=== PATIENT | male | born 1945 | race Caucasian/White ===

== ENCOUNTER 2023-08-15 02:06 | Inpatient (IN) | payer OTHER ==
[~2023-08-15] VITALS: Ht 177.8 cm; Wt 93.8 kg
[2023-08-15] VITALS (9 sets, daily range): BP systolic 105–146; BP diastolic 50–71
[~2023-08-15 02:06] MED LIST: ALLO300 PO; Aspirin EC81 MG; Atenolol50 MG PO; B-121000 MC2 PO; DOXA2 PO; Ferrous Glucon324 MG PO; GABA800 PO; GLIP10 PO; LEVSOD50 PO; METF500 PO; Omeprazole20 M1; Oxycodone-Apap1 EAC3 PO; REFRESH OPTIVE10 M1 UD; SIMV5 PO; Zestril40 MG
[2023-08-15] MEDS ORDERED: Ipratropium/Albuterol SulF 2.5-0.5MG/3 ML Amp INH ONE (02:15)
[2023-08-15 02:22] LABS: BASOPHILS ABSOLUTE AUTO 0.03 K/mm3 (0.00-0.23); BASOPHILS PERCENT AUTO 0 % (0-2); EOSINOPHILS ABSOLUTE AUTO 0.06 K/mm3 (0.00-0.68); EOSINOPHILS PERCENT AUTO 1 % (0-6); Hematocrit 24.2 % (37.0-53.0); Hemoglobin 7.9 g/dL (13.5-17.5); IMMATURE GRAN ABSOLUTE AUTO 0.12 K/mm3 (0.00-0.10); IMMATURE GRAN PERCENT AUTO 1 % (0-1); LYMPHOCYTES ABSOLUTE AUTO 3.69 K/mm3 (0.84-5.20); LYMPHOCYTES PERCENT AUTO 37 % (21-46); MONOCYTES ABSOLUTE AUTO 0.36 K/mm3 (0.16-1.47); MONOCYTES PERCENT AUTO 4 % (4-13); Mean Corpuscular HGB 32.9 pg (26.0-34.0); Mean Corpuscular HGB Conc 32.6 g/dL (31.5-36.5); Mean Corpuscular Volume 101 fL (80-100); Mean Platelet Volume 11.3 fL (9.1-12.4); NEUTROPHILS ABSOLUTE AUTO 5.61 K/mm3 (1.96-9.15); NEUTROPHILS PERCENT AUTO 57 % (41-73); NRBC ABSOLUTE 0.02 K/mm3 (0.00-0.02); NRBC Auto 0.2 /100 WBC (0.0-0.2); Platelet Count 219 K/mm3 (150-400); RDW Coefficient Variation 22.4 % (11.7-14.2); RDW Standard Deviation 73.6 fL (35.1-46.3); White Blood Cell Count 9.87 K/mm3 (4.00-11.30)
[2023-08-15] MEDS ORDERED: ACET500 PO (02:25)
[2023-08-15] MEDS ORDERED: ATOR10 PO (02:25)
[2023-08-15] MEDS ORDERED: BISA10S PR (02:26)
[2023-08-15] MEDS ORDERED: CLOP75 PO (02:27)
[2023-08-15] MEDS ORDERED: FERSU300 PO (02:27)
[2023-08-15] MEDS ORDERED: FURO40 PO (02:28)
[2023-08-15] MEDS ORDERED: BASAGLAR K100 UNIT/4 SC (02:29)
[2023-08-15] MEDS ORDERED: LOSA25 PO (02:30)
[2023-08-15] MEDS ORDERED: HUMALOG KW100 UNIT/1 SC (02:30)
[2023-08-15] MEDS ORDERED: MELA3 PO (02:31)
[2023-08-15] MEDS ORDERED: MAGNESIUM OXID500 MG PO (02:31)
[2023-08-15] MEDS ORDERED: METO25 PO (02:32)
[2023-08-15] MEDS ORDERED: MOME220I (02:32)
[2023-08-15] MEDS ORDERED: SENN187 PO (02:33)
[2023-08-15] MEDS ORDERED: MORP20L PO (02:33)
[2023-08-15] MEDS ORDERED: PANT20 PO (02:34)
[2023-08-15] MEDS ORDERED: TRAZ50 PO (02:34)
[2023-08-15 02:41] LABS: Albumin, Blood 2.8 g/dL (3.4-5.0); Albumin/Globulin Ratio 0.9 (0.8-1.8); Bilirubin, Total 0.8 mg/dL (0.1-1.0); Calcium, Blood 8.8 mg/dL (8.5-10.1); Globulin, Blood 3.1 g/dL (2.2-4.0); Potassium, Blood 4.6 mmol/L (3.5-5.5); Total Protein, Blood 5.9 g/dL (6.4-8.2)
[2023-08-15] MEDS ORDERED: Furosemide 10 MG/ML 4ML Vial IV ONE (03:50)
[2023-08-15] MEDS ORDERED: Ondansetron HCl 2 MG / ML 2ML Vial IV PRN (04:40)
[2023-08-15] MEDS ORDERED: NS 250 ML IV PRN ×2 (05:40→14:20)
[2023-08-15] MEDS ORDERED: Azithromycin 500 MG in NS 250 ML IV SCH (06:00)
--- NOTE | 2023-08-15 06:37 | NUR ---
ARRIVAL TO PCU NOTE: RECEIVED REPORT FROM STUDIO CAMERA OPERATOR JEAN PIERRE SMALL, PT SHORTLY ARRIVED TO PCU 17 AT 0457 THIS AM. SLIDE FROM [facility] TO PCU BED VIA SLIDE SHEET. A/Ox4 AND COOPERATIVE WITH CARE, BUT IS POOR HISTORIAN. CARDIAC, ARRIVED IN SR-ST 90-100'S WITH NO REPORTS OF CP, PRESSURE, OR DIZZINESS. SBP STABLE RANGING 140'S. RESPIRATORY, MAINTAINS SPO2 >95% ON 1-2L NC. DENIES SOB WHEN AT REST, BUT DOES NOT USE OXYGEN AT HOME. GI/, ABLE TO USE URINAL AT BEDSIDE WITH STAFF ASSISTANCE. DENIES BD TENDERNESS, N/V/D AT THIS TIME. BLE AND LEFT ARM NOTED TO HAVE SOME EDEMA. REPORTS NEUROPATHY IN BLE. SCATTERED BRUISING NOTED T/O LEFT BUTTOCKS, BACK, LEFT ARM, AND LEFT CHEST WALL. LUMP NOTED WITH HEALING INCISION LINES NOTED. SEE PICTURES IN CHART. DR. COLON TO BEDSIDE TO EVALUTE PT. 1xPIV IN LINDA. WILL CONTINUE TO PROCESS MD ORDERS. NYLA FITZPATRICK OF THIS NOTE.
[2023-08-15] MEDS ORDERED: CefTRIAXone Sodium 1,000 MG in NS 100 ML IV SCH (07:00)
[2023-08-15] MEDS ORDERED: Enoxaparin 40 MG/0.4 ML SYR SC SCH (09:00)
[2023-08-15] MEDS ORDERED: Furosemide 10 MG/ML 4ML Vial IV SCH (09:00)
[2023-08-15 10:25] LABS: BASOPHILS ABSOLUTE AUTO 0.02 K/mm3 (0.00-0.23); BASOPHILS PERCENT AUTO 0 % (0-2); EOSINOPHILS ABSOLUTE AUTO 0.04 K/mm3 (0.00-0.68); EOSINOPHILS PERCENT AUTO 1 % (0-6); Hematocrit 21.5 % (37.0-53.0); IMMATURE GRAN ABSOLUTE AUTO 0.05 K/mm3 (0.00-0.10); IMMATURE GRAN PERCENT AUTO 1 % (0-1); LYMPHOCYTES ABSOLUTE AUTO 2.47 K/mm3 (0.84-5.20); LYMPHOCYTES PERCENT AUTO 34 % (21-46); MONOCYTES ABSOLUTE AUTO 0.33 K/mm3 (0.16-1.47); MONOCYTES PERCENT AUTO 5 % (4-13); Mean Corpuscular HGB 33.2 pg (26.0-34.0); Mean Corpuscular HGB Conc 32.6 g/dL (31.5-36.5); Mean Corpuscular Volume 102 fL (80-100); Mean Platelet Volume 11.3 fL (9.1-12.4); NEUTROPHILS ABSOLUTE AUTO 4.38 K/mm3 (1.96-9.15); NEUTROPHILS PERCENT AUTO 60 % (41-73); NRBC ABSOLUTE 0.03 K/mm3 (0.00-0.02); NRBC Auto 0.4 /100 WBC (0.0-0.2); Platelet Count 191 K/mm3 (150-400); RDW Coefficient Variation 22.4 % (11.7-14.2); RDW Standard Deviation 75.4 fL (35.1-46.3); Red Blood Cell Count 2.11 M/mm3 (4.30-5.90); White Blood Cell Count 7.29 K/mm3 (4.00-11.30)
[2023-08-15 10:56] LABS: Albumin, Blood 2.5 g/dL (3.4-5.0); Albumin/Globulin Ratio 0.8 (0.8-1.8); Bilirubin, Total 0.7 mg/dL (0.1-1.0); Bun/Creatinine Ratio 31.4 (12.0-20.0); Calcium, Blood 8.4 mg/dL (8.5-10.1); Creatinine, Blood 0.96 mg/dL (0.60-1.20); Globulin, Blood 3.1 g/dL (2.2-4.0); Potassium, Blood 4.2 mmol/L (3.5-5.5); Total Protein, Blood 5.6 g/dL (6.4-8.2)
[2023-08-15] MEDS ORDERED: ALBU90OI INH (12:03)
[2023-08-15] MEDS ORDERED: ALLO100 PO (12:04)
[2023-08-15] MEDS ORDERED: ASPI81CH PO (12:05)
[2023-08-15] MEDS ORDERED: COMBIVENT RESPIM4 G1 INH (12:10)
[2023-08-15] MEDS ORDERED: EUTHYROX50 MCG PO (12:11)
[2023-08-15] MEDS ORDERED: KAPSPARGO SPRIN25 MG PO (12:21)
[2023-08-15] MEDS ORDERED: MULVITA PO (12:22)
[2023-08-15] MEDS ORDERED: DULERA 200 MCG-13 GM INH (12:22)
[2023-08-15] MEDS ORDERED: NITR.4SL SL (12:23)
[2023-08-15] MEDS ORDERED: PREG75 PO (12:25)
[2023-08-15] MEDS ORDERED: SIME80CH PO (12:27)
[2023-08-15] MEDS ORDERED: Sennosides 8.6 MG Tab PO PRN (13:10)
[2023-08-15] MEDS ORDERED: Nitroglycerin 0.4 MG SUBL SL PRN (13:10)
[2023-08-15] MEDS ORDERED: OxyCODONE HCL 5 MG TAB PO PRN (13:10)
[2023-08-15] MEDS ORDERED: TraZODone HCl 50 MG Tab PO PRN (13:15)
[2023-08-15] MEDS ORDERED: Albuterol HFA200 ACT/6.7 GM INH INH PRN (13:25)
[2023-08-15] MEDS ORDERED: Acetaminophen 325 MG TABLET PO PRN (13:25)
[2023-08-15] MEDS ORDERED: Mometasone/Formoterol MDI 100/5 mcg 13 GM INH SCH (13:25)
[2023-08-15] MEDS ORDERED: Clopidogrel Bisulfate 75 MG Tab PO SCH (14:00)
[2023-08-15] MEDS ORDERED: Metoprolol Succinate 25 MG TABCR PO SCH (14:00)
[2023-08-15] MEDS ORDERED: Aspirin 81 MG Chew PO SCH (14:00)
[2023-08-15] MEDS ORDERED: Insulin Human Lispro 100 Units/ML 3ML Syringe SC SCH (16:30)
[2023-08-15] MEDS ORDERED: Pantoprazole Sodium 40 MG Tab PO SCH (16:30)
--- NOTE | 2023-08-15 16:51 | NUR ---
SHIFT SUMMARY PT REMAINS ALERT AND ORIENTED. BP STABLE. HR REMAINS NSR TO SINUS TACH. PT COMPLAINS OF PAIN TO NECK AND BACK THIS EVENING AND MEDICATED PER EMAR. PT RECEIVED 1U PRBC THIS EVENING WITHOUT COMPLICATIONS. CONDOM CATH IN PLACE FOR INCONTINENCE. NO BM THIS SHIFT. PT UP AND MOVING WITH 1 ASSIST AND FWW. PT UP TO RECLINER THIS EVENING. WILL CONTINUE TO MONITOR AND REPORT TO ONCOMING RN
[2023-08-15 20:07] LABS: Hematocrit 24.3 % (37.0-53.0); Hemoglobin 8.1 g/dL (13.5-17.5)
[2023-08-15 20:45] LABS: Prostate Specific Antigen 0.898 ng/mL (0.000-4.000)
[2023-08-15] MEDS ORDERED: Pregabalin 75 MG Cap PO SCH (21:00)
[2023-08-15] MEDS ORDERED: Melatonin 3 MG Tab PO SCH (21:00)
[2023-08-15] MEDS ORDERED: Insulin Glargine-Yfgn 100 Unit/mL 3 ML SYR SC SCH (21:00)
[2023-08-15] MEDS ORDERED: Magnesium Oxide 400 MG Tab PO SCH (21:00)
[2023-08-15] MEDS ORDERED: Atorvastatin 40 MG Tab PO SCH (21:00)
[2023-08-15] MEDS ORDERED: Lactobacil 2-S.Thermo-Bifido 1 1 Cap PO SCH (21:00)
[2023-08-16] VITALS (11 sets, daily range): BP systolic 104–127; BP diastolic 46–81
[2023-08-16 04:28] LABS: BASOPHILS ABSOLUTE AUTO 0.03 K/mm3 (0.00-0.23); BASOPHILS PERCENT AUTO 0 % (0-2); EOSINOPHILS ABSOLUTE AUTO 0.11 K/mm3 (0.00-0.68); EOSINOPHILS PERCENT AUTO 2 % (0-6); Hematocrit 23.1 % (37.0-53.0); Hemoglobin 7.6 g/dL (13.5-17.5); IMMATURE GRAN ABSOLUTE AUTO 0.03 K/mm3 (0.00-0.10); IMMATURE GRAN PERCENT AUTO 0 % (0-1); LYMPHOCYTES ABSOLUTE AUTO 3.11 K/mm3 (0.84-5.20); LYMPHOCYTES PERCENT AUTO 45 % (21-46); MONOCYTES ABSOLUTE AUTO 0.24 K/mm3 (0.16-1.47); MONOCYTES PERCENT AUTO 4 % (4-13); Mean Corpuscular HGB 31.9 pg (26.0-34.0); Mean Corpuscular HGB Conc 32.9 g/dL (31.5-36.5); Mean Platelet Volume 11.2 fL (9.1-12.4); NEUTROPHILS ABSOLUTE AUTO 3.39 K/mm3 (1.96-9.15); NEUTROPHILS PERCENT AUTO 49 % (41-73); Platelet Count 181 K/mm3 (150-400); RDW Coefficient Variation 23.2 % (11.7-14.2); RDW Standard Deviation 72.3 fL (35.1-46.3); Red Blood Cell Count 2.38 M/mm3 (4.30-5.90); White Blood Cell Count 6.91 K/mm3 (4.00-11.30)
[2023-08-16 04:38] LABS: Mean Corpuscular Volume 97 fL (80-100)
--- NOTE | 2023-08-16 04:53 | NUR ---
SHIFT SUMMARY A/Ox3-4 AND COOPERATIVE WITH CARE. CAN BE FORGETFUL AT TIMES, BUT IS ABLE TO MAKE HIS NEEDS KNOWN. NO ACUTE EVENTS OVERNIGHT. CARDIAC, REMAINS SR-ST 80-100 S WITH NO REPORTS OF CP, PRESSURE, OR DIZZINESS. SBP HAS BEEN STABLE RANGING 110-140'S. RESPIRATORY, MAINTAINS SPO2 >95% ON RA. ENDORSES SOME INCREASE IN WORK OF BREATHING WITH EXERTION. GI/, INTERMITTENT INCONTINENCE OF URINE. CONDOM CATH PLACED FOR MORE ACCURATE I/Os. CATH PATENT AND DRAINING YELLOW URINE TO GRAVITY. ABLE TO AMBULATE TO BSC OR RECLINER WITH 1-2 STAFF ASSISTANCE. ENDORSES GENERAL WEAKNESS. PAIN HAS BEEN WELL MANAGED WITH PRN PAIN MEDICATIONS. MEPILEX ON COCCYX CHANGED THIS SHIFT. NO NEW ORDERS AT THIS TIME, WILL REPORT TO ONCOMING RN. NYLA FITZPATRICK OF THIS NOTE.
[2023-08-16 04:54] LABS: Bun/Creatinine Ratio 31.8 (12.0-20.0); Calcium, Blood 8.8 mg/dL (8.5-10.1); Creatinine, Blood 0.97 mg/dL (0.60-1.20); Potassium, Blood 4.1 mmol/L (3.5-5.5)
[2023-08-16] MEDS ORDERED: Levothyroxine Sodium 0.05 MG Tab PO SCH (06:00)
[2023-08-16] MEDS ORDERED: Allopurinol 100 MG Tab PO SCH (09:00)
[2023-08-16] MEDS ORDERED: Spironolactone 12.5 MG TAB PO SCH (09:00)
[2023-08-16] MEDS ORDERED: Pantoprazole Sodium 40 MG Tab PO SCH (09:00)
[2023-08-16] MEDS ORDERED: Losartan Potassium 25 MG Tab PO SCH ×2 (09:00)
[2023-08-16] MEDS ORDERED: Empagliflozin 10 MG TAB PO SCH (09:00)
[2023-08-16] MEDS ORDERED: Multivitamins 1 Tab PO SCH (09:00)
[2023-08-16 12:20] LABS: Hematocrit 24.1 % (37.0-53.0); Hemoglobin 7.9 g/dL (13.5-17.5)
--- NOTE | 2023-08-16 15:21 | NUR ---
SHIFT SUMMARY No acute changes t/o shift. vss. Pt up with 1 person assist to bathroom. Pt reports episode of SOB with bilateral upper extremity twich/jerking; md aware. Report given to RN assuming care of patient.
--- NOTE | 2023-08-16 18:21 | NUR ---
SHIFT SUMMARY PT TRANSFERED FROM PCU THIS AFTERNOON. ORIENTED TO ROOM. CALL LIGHT IN REACH. PT AMBULATED TO BATHROOM, SMALL DARK STOOL SEEN IN TOILET. BLOOD ORDER RECIEVED & STARTED FOR 1 UNIT OF PRBC. PT TOLERATING WELL SO FAR. SITTING ON SIDE OF BED, EATING DINNER. DENIES OTHER NEEDS AT THIS TIME. MEDICATED ONCE FOR PAIN SINCE ARRIVAL TO UNIT.
[2023-08-17] MEDS ORDERED: ARTIFICIAL TEAR15 M2 BOTHEYES (00:19)
[2023-08-17] MEDS ORDERED: GLYCERIN1 EAC3 PR (00:20)
[2023-08-17] MEDS ORDERED: ATEN25 PO (00:21)
[2023-08-17] MEDS ORDERED: B-121000 MC7 PO (00:22)
[2023-08-17] MEDS ORDERED: GUAI600T33 PO (00:24)
[2023-08-17] MEDS ORDERED: METF500 PO (00:36)
[2023-08-17 03:12] VITALS: BP 122/49
--- NOTE | 2023-08-17 05:17 | NUR ---
SHIFT SUMMARY PT RECEIVED 1 UNIT OF RBC'S THIS SHIFT. NO OTHER ACUTE CHANGES. CALL LIGHT WITHIN REACH AND PT ABLE TO MAKE NEEDS KNOWN.
[2023-08-17 05:37] LABS: BASOPHILS ABSOLUTE AUTO 0.03 K/mm3 (0.00-0.23); BASOPHILS PERCENT AUTO 1 % (0-2); EOSINOPHILS ABSOLUTE AUTO 0.11 K/mm3 (0.00-0.68); EOSINOPHILS PERCENT AUTO 2 % (0-6); Hematocrit 24.6 % (37.0-53.0); IMMATURE GRAN ABSOLUTE AUTO 0.05 K/mm3 (0.00-0.10); IMMATURE GRAN PERCENT AUTO 1 % (0-1); LYMPHOCYTES ABSOLUTE AUTO 2.16 K/mm3 (0.84-5.20); LYMPHOCYTES PERCENT AUTO 37 % (21-46); MONOCYTES ABSOLUTE AUTO 0.22 K/mm3 (0.16-1.47); MONOCYTES PERCENT AUTO 4 % (4-13); Mean Corpuscular HGB 31.9 pg (26.0-34.0); Mean Corpuscular HGB Conc 32.5 g/dL (31.5-36.5); Mean Corpuscular Volume 98 fL (80-100); Mean Platelet Volume 11.2 fL (9.1-12.4); NEUTROPHILS ABSOLUTE AUTO 3.25 K/mm3 (1.96-9.15); NEUTROPHILS PERCENT AUTO 56 % (41-73); Platelet Count 175 K/mm3 (150-400); RDW Standard Deviation 70.7 fL (35.1-46.3); Red Blood Cell Count 2.51 M/mm3 (4.30-5.90); White Blood Cell Count 5.82 K/mm3 (4.00-11.30)
[2023-08-17 06:05] LABS: Calcium, Blood 8.6 mg/dL (8.5-10.1); Potassium, Blood 4.1 mmol/L (3.5-5.5)
[2023-08-17 07:52] VITALS: BP 140/70
[2023-08-17] MEDS ORDERED: Ferrous Sulfate 325 MG Tab PO SCH (09:00)
[2023-08-17] MEDS ORDERED: CYCL0.05OP BOTHEYES (10:38)
[2023-08-17 15:53] VITALS: BP 140/74
[2023-08-17] MEDS ORDERED: Benzonatate 100 MG Cap PO PRN (16:05)
--- NOTE | 2023-08-17 17:29 | NUR ---
SHIFT SUMMARY: PATIENT REPORTS PAIN IN HIS RIGHT ARM/SHOULDER AND TAILBONE. MEDICATED PER PRN PAIN MEDICATIONS. PATIENT IS MOVING HIS WEIGHT AND WILL SIT AT THE BEDSIDE INDEPENDENTLY. MEPILEX IN PLACE ON THE TAILBONE. PATIENT UP TO THE CHAIR FOR BREAKFAST AND DINNER. PATIENT AMBULATED IN THE MEDEROS WITH FWW AND BLOW TORCH OPERATOR. PATIENT ABLE TO WALK PARTWAY DOWN THE MEDEROS BEFORE REPORTING HE WAS TOO FATIGUED TO CONTINUED. SOME SHORTNESS OF BREATH NOTED. NO SUPPLEMENTAL O2 NEEDED. PATIENT'S VITALS STABLE. MAPS >65. PATIENT DENIED CHEST PAIN OR DISCOMFORT. PATIENT STABLE ON RA. PATIENT HAS AN IRRITATING COUGH. TESSALON PEARLS PRN GIVEN TO PATIENT. PATIENT HAS AN ADEQUATE APPETITE. PATIENT REPORTED THAT HIS APPETITE HAS BEEN IMPROVING. PATIENT ABLE TO HAVE A SMALL, SOFT, BROWN BM TODAY. PATIENT DENIES NAUSEA OR ABDOMINAL DISCOMFORT. PATIENT CONTINENT. LIGHT YELLOW URINE POST LASIX ADMINISTRATION. PATIENT IS CALM AND COOPERATIVE WITH CARE. PATIENT RESPONDS WELL TO ENCOURAGEMENT AND EDUCATION.
[2023-08-17 19:30] VITALS: BP 135/62
[2023-08-18] VITALS (9 sets, daily range): BP systolic 125–159; BP diastolic 43–67
--- NOTE | 2023-08-18 05:49 | NUR ---
SHIFT SUMMARY PT C/O PAIN TO L ARM AND LINDA. PT GIVEN TYLENOL AND PAIN RESOLVED. NO OTHER ACUTE CHANGES THIS SHIFT. CALL LIGHT WITHIN REACH AND PT ABLE TO MAKE NEEDS KNOWN.
[2023-08-18 08:40] LABS: Hematocrit 24.3 % (37.0-53.0); Hemoglobin 7.8 g/dL (13.5-17.5)
[2023-08-18] MEDS ORDERED: Bisacodyl 10 MG Supp PR PRN (11:20)
[2023-08-18 15:15] LABS: Hematocrit 23.4 % (37.0-53.0); Hemoglobin 7.3 g/dL (13.5-17.5)
--- NOTE | 2023-08-18 16:23 | NUR ---
pt fragile and short of breath with any excertion. Having some difficulty tracking conversation. States to call sister to review need he would not want to be in a coma on a ventilator. Will call family.
--- NOTE | 2023-08-18 17:48 | NUR ---
Met with patient and his sister. We reviewed his wished and prognosis pt want to be a DNR with limited treatment. He will go to ICU for cardiac medications. Sister talked about prognosis and wediscussed going on hospice if he continues to have air hunger and not repond to treatment on this admission will seek hospice. We discussed good family time and better symptom control and dignity. updated physician and will process polst advised sister if he goes to hospice will update post to comfort only. PT kps score is 30%.
--- NOTE | 2023-08-18 19:52 | NUR ---
SHIFT SUMMARY: PATIENT WAS MORE FATIGUED TODAY THAN YESTERDAY. PATIENT CALM AND COOPERATIVE. PATIENT HAD SIMILAR LEVELS OF PAIN YESTERDAY IN HIS ARMS/SHOULDERS. PATIENT MEDICATED PER PRNS. PATIENT UP TO THE BATHROOM MULTIPLE TIMES TO ATTEMPT A BOWEL MOVEMENT. PATIENT PASSING FLATUS. ABDOMEN IS SOFT AND NON-TENDER. ADDITIONAL BOWEL CARE ORDERS OBTAINED. PATIENT HAD A REDUCED APPETITE TODAY. PATIENT VOIDING WITHOUT DIFFICULTY. PATIENT CONTINUES TO BE STABLE ON ROOM AIR. SOME SHORTNESS OF BREATH AT TIMES WITH AMBULATION. SOME MINIMAL WHEEZES AT TIMES. PATIENT'S SISTER RITU VISITED THIS AFTERNOON. SHE IS SUPPORTIVE AND ENCOURAGING OF THE PATIENT. SHE WAS PRESENT WHEN PALLIATIVE CARE WAS ABLE TO VISIT.
[2023-08-19 04:52] VITALS: BP 122/70
[2023-08-19 05:09] LABS: BASOPHILS ABSOLUTE AUTO 0.03 K/mm3 (0.00-0.23); BASOPHILS PERCENT AUTO 1 % (0-2); EOSINOPHILS ABSOLUTE AUTO 0.08 K/mm3 (0.00-0.68); EOSINOPHILS PERCENT AUTO 1 % (0-6); Hematocrit 27.8 % (37.0-53.0); Hemoglobin 8.9 g/dL (13.5-17.5); IMMATURE GRAN ABSOLUTE AUTO 0.03 K/mm3 (0.00-0.10); IMMATURE GRAN PERCENT AUTO 1 % (0-1); LYMPHOCYTES ABSOLUTE AUTO 2.19 K/mm3 (0.84-5.20); LYMPHOCYTES PERCENT AUTO 39 % (21-46); MONOCYTES ABSOLUTE AUTO 0.27 K/mm3 (0.16-1.47); MONOCYTES PERCENT AUTO 5 % (4-13); Mean Corpuscular HGB 32.1 pg (26.0-34.0); Mean Corpuscular Volume 100 fL (80-100); NEUTROPHILS ABSOLUTE AUTO 3.03 K/mm3 (1.96-9.15); NEUTROPHILS PERCENT AUTO 54 % (41-73); Platelet Count 189 K/mm3 (150-400); RDW Coefficient Variation 21.8 % (11.7-14.2); RDW Standard Deviation 72.9 fL (35.1-46.3); Red Blood Cell Count 2.77 M/mm3 (4.30-5.90); White Blood Cell Count 5.63 K/mm3 (4.00-11.30)
--- NOTE | 2023-08-19 05:47 | NUR ---
pt tolerated blood transfusion with out difficulty. suppository given this am with positive result. pt up to bsc, medium formed very dark black/green stool with small spots of bright red blood. no other events overnight. vitals remain stable at this time.
[2023-08-19 07:55] VITALS: BP 126/54
--- NOTE | 2023-08-19 09:50 | NUR ---
PHONE CALL TO DR MARQUEZ REGARDING AM BG 81, REQUESTING ORDERS REGARDING 5 UNITS INSULIN SCHEDULED IN AM WITH BREAKFAST. LMOM WAITING FOR CALL BACK.
--- NOTE | 2023-08-19 14:00 | NUR ---
SIGNED POLST FORM. POLST SENT TO THE [place] [facility]ST [facility], [facility] MEDICAL RECORDS, [facility] MEDICAL RECORDS, FRONT OF PAPER CHART. ORIGINAL POLST AND PHOTO COPY GIVEN TO PT.
[2023-08-19 14:53] VITALS: BP 137/53
[2023-08-19 15:20] LABS: Hematocrit 24.5 % (37.0-53.0); Hemoglobin 7.9 g/dL (13.5-17.5)
--- NOTE | 2023-08-19 18:21 | NUR ---
SHIFT SUMMARY PATIENT C/O BEING COLD INTERMITTENT TODAY, HIS PAIN IS RELIEVED BY MEDICATIONS PER EMAR. HIS SHORTNESS OF BREATH IS RELIEVED BY HIS INHALERS PRN PER EMAR. HE IS UB AD KERON TO BATHROOM. HE IS ABLE TO MAKE NEEDS KNOWN. BED IN LOW POSITION, CALL LIGHT IN REACH. WILL CONTINUE TO MONITOR.
--- NOTE | 2023-08-19 19:09 | NUR ---
LIFE PARTNER WING AND SISTER RITU WILL BE IN ON 08/19 AT 1:OO PM TO MEET WITH DR MARQUEZ AND PALLIATIVE CARE. MESSAGE PASSED ON TO SUPERVISOR SEWER SYSTEM RN WELL.
[2023-08-19 19:32] VITALS: BP 139/55
[2023-08-20 03:08] VITALS: BP 131/111
[2023-08-20 04:18] VITALS: BP 129/56
--- NOTE | 2023-08-20 04:36 | NUR ---
SHIFT SUMMARY ADMITTED FOR CHF EXACERBATION. DNR CODE. PLAN IS FOR FAMILY, DRAngelito, AND PALLIATIVE CARE TO MEET TO DISCUSS FUTURE PATH OF CARE. CARDIAC DIET, ON RA. INDEPENDENT W/FWW - BRP. ACHS CBG'S. ANTIB RX ARE SCHEDULED. NO DARK STOOLS THIS SHIFT. NO NEW CONCERNS THIS SHIFT.
[2023-08-20 07:17] VITALS: BP 157/60
--- NOTE | 2023-08-20 08:44 | NUR ---
pt sitting up on the side of the bed awake a/ox4, can be forgetful at times, cooperative with care, follows commands well, reports pain at 10/10 arms, neck sacral area, not open, has tiny sore, not really open and blanches, egg crate placed on bed, lungs are dim t/o, takes shallow breaths, on r/a, hrr, tele in place running sr to st, 3-4+ edema noted to b/l le, cap refill <4 sec, vs stable, afebrile, piv to rfa site is clear and patent, btx4, abd flat soft nontender, voids without diff, skin c/w/d, maew, zeus, medicated for pain, call light in reach.
[2023-08-20] MEDS ORDERED: Sucralfate 1000MG / 10ML UD BTL PO SCH (09:00)
--- NOTE | 2023-08-20 14:17 | NUR ---
Pt and family have elected to discharge home with hospice. [facility]. Bankruptcy Judge notified.
[2023-08-20 15:34] VITALS: BP 118/54
--- NOTE | 2023-08-20 18:13 | NUR ---
pt doing better this eveing than this am, medicated with pain twice today, ambulates himself to the bathroom, no acute changes this shift, call light in reach.
[2023-08-20 19:19] VITALS: BP 119/50
--- NOTE | 2023-08-21 04:02 | NUR ---
SHIFT SUMMARY ADMITTED FOR CHF EXACERBATION. DNR CODE. PLAN IS TO DC HOME W/HOSPICE. TELEMETRY: NSR @ 84 BPM. ACHS CBG'S. BLE EDEMA NOTED. PATIENT DENIES PAIN. CARDIAC DIET. ON RA. HE CAN MAKE HIS NEEDS KNOWN. NO BM REPORTED THIS SHIFT. NO NEW CONCERNS.
[2023-08-21 07:23] VITALS: BP 125/53
--- NOTE | 2023-08-21 09:00 | NUR ---
pt laying in bed, he states he's pretty tired this am, didn't sleep well after worrying about going home on hospice, states pain is ok, lungs are clear in [place], dim in bases, resp even and unlabored, no cough noted, hrr, tele in place running sr per monitor, see strip, 2-4+ edema noted to b/l le, cap refill <4 sec, vs stable, afebrile, piv to rfa site is clear and patent, bt x4, abd flat soft nontender, voids without diff, skin pale, no wounds, maew, ambulates himself to the bathroom using a walker, zeus, call light in reach.
[2023-08-21] MEDS ORDERED: Gabapentin 300 MG Cap PO SCH (14:00)
--- NOTE | 2023-08-21 18:19 | NUR ---
pt resting in bed, watching tv or sleeping when left undisturbed, did medicate for pain this evening, no acute changes this shift, call light in reach.
[2023-08-21 19:50] VITALS: BP 142/51
[2023-08-22 02:25] VITALS: BP 126/53
--- NOTE | 2023-08-22 05:02 | NUR ---
SHIFT SUMMARY PT. IS A&O X4, PLEASANT AND ABLE TO MAKE HIS NEEDS KNOWN. PT.DENIES N/V, AND REPORTES THAT HE HAS NOT HAD ANY DARK STOOLS DURING THE HS. C/O BACKPAIN 7/10WORST, PRN OXYCODONE 5MG ADMINISTERED, PT.REPORTS EFFECTIVE, (SEE EMAR.) PT. REPORTS HEATING PAD UNDER HIS BACK IS EFFECTIVE FOR PAIN WELL. PT. DENIES COUGH, LS ARE CLEAR UL'S AND DIMINISHED LL'S. PT IS ON RA. NOTED 3+ PITTING EDEMA LE'S. NO ACUTE EVENTS/DISTRESS NOTED OR REPORTED DURING THIS SHIFT. BED AT THE LOWEST POSITION, CALL LIGHT IN REACH. WILL HAND OFF TO THE INCOMING SHIFT NURSE.
[2023-08-22 07:36] VITALS: BP 114/51
[2023-08-22] MEDS ORDERED: Gabapentin 300 MG Cap PO SCH (09:00)
[2023-08-22] MEDS ORDERED: Furosemide 20 MG Tab PO SCH (09:00)
--- NOTE | 2023-08-22 09:35 | NUR ---
BUSINESS MACHINE MECHANIC NURSE DOCUMENTED ON THIS MORNING'S 0900 GABAPENTIN DOSE PER PHARMACY REPORT. ALTERNATIVE DISPUTE RESOLUTION MEDIATOR REORDERED THE GABAPENTIN SCHEDULE AND THIS NURSE GAVE THE 0900 DOSE. CUSTOMER ENERGY SPECIALIST NOTIFIED.
[2023-08-22] MEDS ORDERED: SPIR25 PO (11:50)
[2023-08-22] MEDS ORDERED: Carafate1 GM/10 ML PO (11:53)
--- NOTE | 2023-08-22 13:18 | NUR ---
ROBYN A&OX4, COOPERATIVE WITH CARE. TOLERATED SBA WITH A FWW WELL. DENIES ANY CP/PRESSURE THIS SHIFT. COMPLAINED OF PAIN TO BILATERAL ARMS AND MEDICATED PER EMAR. 3+ PITTING EDEMA TO BLE. NO ACUTE EVENTS THIS SHIFT. DISCHARGE PACKET REVIEWED WITH PATIENT. DENIED ANY QUESTIONS OR CONCERNS. IV REMOVED. [facility]. PATIENT PICKED UP BY TRANSPORT AT 1300.
[2023-08-23] MEDS ORDERED: DOCU100 PO (09:45)
[2023-08-23] MEDS ORDERED: BISA10S PR (09:45)
== END 2023-08-22 13:09 | disposition hospice, home (50) | DRG 280 ==
LOC: ER 02:06 → MEDS 03:52 → PCU 03:52 → MEDS 08-16 16:08
PROVIDERS: Emergency Medicine; Internal Medicine; Student in an Organized Health Care Education/Training Program; ADMIT Internal Medicine
PROC: 30233N1 Transfusion of Nonautologous Red Blood Cells into Peripheral Vein, Percutaneous Approach (ICD-10-PCS; principal; 2023-08-15)
DX: I11.0 Hypertensive heart disease with heart failure (principal); I50.23 Acute on chronic systolic (congestive) heart failure; I21.4 Non-ST elevation (NSTEMI) myocardial infarction; J96.01 Acute respiratory failure with hypoxia; D62 Acute posthemorrhagic anemia; K92.2 Gastrointestinal hemorrhage, unspecified; L76.32 Postprocedural hematoma of skin and subcutaneous tissue following other procedure; I25.10 Atherosclerotic heart disease of native coronary artery without angina pectoris; F17.210 Nicotine dependence, cigarettes, uncomplicated; D64.9 Anemia, unspecified; E78.5 Hyperlipidemia, unspecified; M10.9 Gout, unspecified; E11.40 Type 2 diabetes mellitus with diabetic neuropathy, unspecified; Z85.46 Personal history of malignant neoplasm of prostate; Z79.899 Other long term (current) drug therapy; Z79.01 Long term (current) use of anticoagulants; Z79.4 Long term (current) use of insulin; Z79.890 Hormone replacement therapy; Z98.890 Other specified postprocedural states; Z96.643 Presence of artificial hip joint, bilateral; Z95.5 Presence of coronary angioplasty implant and graft
CPT/HCPCS: 36415; 36430; 71045; 80048; 80053; 82947; 83880; 84153; 84484; 85014; 85018; 85025; 86850; 86900; 86901; 86923; 87070; 87106; 87205; 93005; 93010; 94640; 94664; 94760; 96374; 99285-25; A9270; J0456; J0696; J1650; J1815; J1940; J7050; P9016

== ENCOUNTER 2023-08-23 08:20 | Inpatient (IN) | payer OTHER ==
[~2023-08-23] VITALS: Ht 172.7 cm; Wt 93.1 kg
[~2023-08-23 08:20] MED LIST changes: +ACET500 PO; +ALBU90OI INH; +ALLO100 PO; +ARTIFICIAL TEAR15 M2 BOTHEYES; +ASPI81CH PO; +ATEN25 PO; +ATOR10 PO; +B-121000 MC7 PO; +BASAGLAR K100 UNIT/4 SC; +BISA10S PR; +CLOP75 PO; +COMBIVENT RESPIM4 G1 INH; +CYCL0.05OP BOTHEYES; +Carafate1 GM/10 ML PO; +DULERA 200 MCG-13 GM INH; +EUTHYROX50 MCG PO; +FERSU300 PO; +FURO40 PO; +GLYCERIN1 EAC3 PR; +GUAI600T33 PO; +HUMALOG KW100 UNIT/1 SC; +KAPSPARGO SPRIN25 MG PO; +LOSA25 PO; +MAGNESIUM OXID500 MG PO; +MELA3 PO; +METO25 PO; +MOME220I; +MORP20L PO; +MULVITA PO; +NITR.4SL SL; +PANT20 PO; +PREG75 PO; +SENN187 PO; +SIME80CH PO; +SPIR25 PO; +TRAZ50 PO
[2023-08-23 09:03] LABS: BASOPHILS ABSOLUTE AUTO 0.02 K/mm3 (0.00-0.23); BASOPHILS PERCENT AUTO 0 % (0-2); EOSINOPHILS ABSOLUTE AUTO 0.05 K/mm3 (0.00-0.68); EOSINOPHILS PERCENT AUTO 1 % (0-6); Hematocrit 23.3 % (37.0-53.0); Hemoglobin 7.5 g/dL (13.5-17.5); IMMATURE GRAN ABSOLUTE AUTO 0.03 K/mm3 (0.00-0.10); IMMATURE GRAN PERCENT AUTO 1 % (0-1); LYMPHOCYTES ABSOLUTE AUTO 1.67 K/mm3 (0.84-5.20); LYMPHOCYTES PERCENT AUTO 32 % (21-46); MONOCYTES ABSOLUTE AUTO 0.33 K/mm3 (0.16-1.47); MONOCYTES PERCENT AUTO 6 % (4-13); Mean Corpuscular HGB 34.2 pg (26.0-34.0); Mean Corpuscular HGB Conc 32.2 g/dL (31.5-36.5); Mean Corpuscular Volume 106 fL (80-100); Mean Platelet Volume 11.1 fL (9.1-12.4); NEUTROPHILS ABSOLUTE AUTO 3.16 K/mm3 (1.96-9.15); NEUTROPHILS PERCENT AUTO 60 % (41-73); Platelet Count 195 K/mm3 (150-400); RDW Coefficient Variation 23.6 % (11.7-14.2); RDW Standard Deviation 86.3 fL (35.1-46.3); Red Blood Cell Count 2.19 M/mm3 (4.30-5.90); White Blood Cell Count 5.26 K/mm3 (4.00-11.30)
[2023-08-23 09:13] LABS: Bun/Creatinine Ratio 22.6 (12.0-20.0); Calcium, Blood 8.7 mg/dL (8.5-10.1); Creatinine, Blood 1.06 mg/dL (0.60-1.20); Potassium, Blood 4.6 mmol/L (3.5-5.5)
[2023-08-23] MEDS ORDERED: BISA10S PR (09:45)
[2023-08-23] MEDS ORDERED: DOCU100 PO (09:45)
[2023-08-23] MEDS ORDERED: Nitroglycerin 1 INCH/GM PKT TOP ONE (11:30)
[2023-08-23] MEDS ORDERED: Furosemide 10 MG/ML 4ML Vial IV ONE (11:50)
[2023-08-23] MEDS ORDERED: LORazepam 2 MG/ML 1ML Injection IV ONE ×2 (12:55→14:00)
[2023-08-23] MEDS ORDERED: Magnesium Hydroxide Conc 10 ML UDC PO PRN (13:35)
[2023-08-23] MEDS ORDERED: ALPRAZolam 0.5 MG Tab PO PRN (13:40)
[2023-08-23] MEDS ORDERED: Ondansetron HCl 2 MG / ML 2ML Vial IV PRN (13:40)
[2023-08-23] MEDS ORDERED: OxyCODONE HCL 5 MG TAB PO PRN (13:45)
[2023-08-23] MEDS ORDERED: Nitroglycerin 0.4 MG SUBL SL PRN (13:45)
[2023-08-23] MEDS ORDERED: TraZODone HCl 50 MG Tab PO PRN (13:50)
[2023-08-23] MEDS ORDERED: Albuterol 2.5 MG/3 ML VIAL INH PRN (13:50)
[2023-08-23] MEDS ORDERED: Gabapentin 300 MG Cap PO SCH (14:00)
[2023-08-23 14:10] LABS: Source, Urine Foley catheter
[2023-08-23 14:14] LABS: Appearance, Urine Clear (Clear); Bilirubin, Urine Neg (Neg); Blood, Urine Neg (Neg); Color, Urine Yellow (P-Yellow); Glucose Qualitative, Urine 4+ (Neg); Ketones, Urine Neg (Neg); Leukocyte Esterase, Urine Neg (Neg); Nitrite, Urine Neg (Neg); Protein, Urine Neg (Neg); Urobilinogen, Urine NORM (Normal); pH, Urine 6.5 (5.0-8.0)
[2023-08-23 15:08] VITALS: BP 153/59
[2023-08-23] MEDS ORDERED: Sucralfate 1000MG / 10ML UD BTL PO SCH (16:30)
[2023-08-23] MEDS ORDERED: Pantoprazole Sodium 40 MG Tab PO SCH (16:30)
[2023-08-23 16:54] VITALS: BP 131/58
[2023-08-23] MEDS ORDERED: Sod Phosphate/Sod Biphosphate 132 ML BTL PR ONE (16:55)
[2023-08-23] MEDS ORDERED: Furosemide 10 MG/ML 4ML Vial IV SCH (18:00)
--- NOTE | 2023-08-23 18:09 | NUR ---
SHIFT SUMMARY; ASSUMED CARE FROM ED. ARRIVES ON BIPAP, SLUMPED TO LEFT SIDE. ATTEMPTS TO OPEN EYES TO VERBAL STIMULI, APPEARS SOMULENT. UNABLE TO FOLLOW DIRECTIONS OR ANSWER QUESTIONS FOR ASSESMENT. SKIN PALE, 3+ EDEMA TO BLE AND BUE. L/S DIM T/O. BIPAP SETTINGS 03/30 30%. PO MEDS HELD DUE TO DECREASED LOC. VARGAS IN PLACE DRAINING CLEAR YELLOW URINE, ENEMA GIVEN PER ORDERS. MEDIUM DARK BROWN STOOL FOLLOWING ENEMA, CLEANED AND CHANGED DRY FLOW. MEPILEX PLACED TO COCCYX FOR REDNESS. WILL CONTINUE TO MONITOR AND TREAT UNTIL CHANGE OF SHIFT.
[2023-08-23 19:52] VITALS: BP 121/48
[2023-08-23] MEDS ORDERED: Sennosides 8.6 MG Tab PO SCH (21:00)
[2023-08-23] MEDS ORDERED: Melatonin 3 MG Tab PO SCH (21:00)
[2023-08-23] MEDS ORDERED: Bisacodyl 10 MG Supp PR SCH (21:00)
[2023-08-23] MEDS ORDERED: Insulin Glargine-Yfgn 100 Unit/mL 3 ML SYR SC SCH (21:00)
[2023-08-23] MEDS ORDERED: Polyethylene Glycol 3350 17 gm PO SCH (21:00)
--- NOTE | 2023-08-23 22:39 | NUR ---
ASSUMPTION OF CARE AFTER RECEIVING REPORT FROM ALBARO CUTLER, THIS RN ASSUMED CARE AT APPROX 1915. DURING INITIAL ENCOUNTER PATIENT SLEEPING WITH BIPAP MASK ON, EASILY AROUSABLE WITH VERBAL STIMULI. SOFT SPEECH NOTED. PERRLA. ANSWERS ORIENTATION QUESTIONS APPROPRIATELY. ABLE TO SWALLOW PILLS WHOLE WITH WATER. TELEMETRY SHOWING SINUS 90s. BP STABLE. DENIES CHEST PAIN, PRESSURE. 3+ EDEMA TO BLE, 2+ EDEMA TO BUE. LARGE AMOUNTS OF URINARY OUTPUT WITH LASIX. TOLERATING BIPAP 12/6 30%. SATs >90%. RESPIRATIONS 20-25. TOLERATED 2L VIA NC FOR PO MEDICATIONS. VARGAS CATHETER IN PLACE DRAINING YELLOW URINE TO GRAVITY. MIRALAX, SENNA, COLACE, AND DULCOLAX ADMINISTERED PER EMAR. PATIENT ATTEMPTED TO PASS BM ON BEDPAN, UNABLE TO AT THIS TIME. DENIES FLATULENCE. Q2H REPOSITIONING IN PLACE TO PREVENT SKIN BREAKDOWN. GENERALIZED WEAKNESS T/O ALL EXTREMITIES. CALL LIGHT IN REACH.
[2023-08-23 23:24] VITALS: BP 124/84
[2023-08-24 04:09] VITALS: BP 117/54
--- NOTE | 2023-08-24 05:04 | NUR ---
SHIFT SUMMARY NO ACUTE EVENTS SINCE ASSUMPTION OF CARE. PATIENT SLEPT OR RESTED QUIETLY THROUGHOUT SHIFT. EASILY AROUSABLE WITH VERBAL STIMULI. TELEMETRY SHOWING SINUS/SINUS TACH 90s-100s. BP STABLE. DENIES CHEST PAIN, PRESSURE. REMAINS ON 2L VIA NC, SATs >90%. PATIENT DECLINING USE OF BIPAP MASK SINCE APPROX 2300. STATES "MY BREATHING FEELS MUCH BETTER." RESPIRATIONS EVEN, UNLABORED. MULTIPLE BMs THROUGHOUT SHIFT. VARGAS CATHETER IN PLACE, DRAINING YELLOW URINE TO GRAVITY. REPOSITIONING REGULARLY AND PRN THROUGHOUT SHIFT. CALL LIGHT IN REACH. WILL CONTINUE TO MONITOR AND REPORT TO ONCOMING RN.
[2023-08-24 07:29] VITALS: BP 138/64
[2023-08-24] MEDS ORDERED: Metoprolol Succinate 25 MG TABCR PO SCH (09:00)
[2023-08-24] MEDS ORDERED: Furosemide 10 MG/ML 4ML Vial IV SCH (09:00)
[2023-08-24] MEDS ORDERED: Clopidogrel Bisulfate 75 MG Tab PO SCH (09:00)
[2023-08-24] MEDS ORDERED: Aspirin 81 MG Chew PO SCH (09:00)
[2023-08-24] MEDS ORDERED: Spironolactone 25 MG Tab PO SCH (09:00)
[2023-08-24 11:43] VITALS: BP 120/71
[2023-08-24] MEDS ORDERED: LORazepam 0.5 MG Tab PO PRN (13:20)
[2023-08-24] MEDS ORDERED: Morphine Sulfate 20 MG/1ML 1 ML Oral Syringe PO PRN (13:20)
[2023-08-24 16:36] VITALS: BP 123/50
--- NOTE | 2023-08-24 16:58 | NUR ---
Spoke to pt's roommate Zeina today. She verbalizes the understanding that the patient is unable to be left home alone, and has caregivers set up to assist when she works. Plan is for pt to discharge home tomorrow morning at 9am. Prescriptions for roxanol and lorazepam picked up today by Zeina, so he would have them available upon discharge.
--- NOTE | 2023-08-24 18:29 | NUR ---
SHIFT SUMMARY; ASSUMED CARE AT 0700. A/A/OX4. OFF OF BIPAP FOR SHIFT, 2L VIA NC. REPORTS INTERMITANT ANXIETY, MEDICATED PER EMAR WITH GOOD RESULTS. PLAN FOR DC TOMORROW ON HOSPICE, VARGAS IN PLACE FOR HOSPICE DRAINING CLEAR YELLOW URINE. EDEMA TO BUE IMPROVED FROM YESTERDAY. BLE EDEMA 3+. SAT IN RECLINER CHAIR IN AFTERNOON. AMBULATED BACK TO BED WITH SBA. RX'S PICKED UP BY GIRLFRIEND FRIEND TO FILL FOR DC TOMORROW. PLESANT AND COOPERATIVE WITH CARE. WILL CONTINUE TO MONITOR AND TREAT UNTIL CHANGE OF SHIFT.
[2023-08-24 20:19] VITALS: BP 100/48
--- NOTE | 2023-08-24 21:08 | NUR ---
PT IS ALERT AND ORIENTED, COOPERATIVE WITH CARE AND ABLE TO MAKE NEEDS KNOWN. HE IS ON 2L NC AND MAINTAINING 02 SATURATION ABOVE 95%, HE DENIES SOB. HR 90'S, HE DENIES CHEST PAIN/PRESSURE, BP STABLE. PT ATE 100% OF A SMALL SNACK AND TOLERATED WELL. VARGAS CATHETER IS PATENT AND DRAINING YELLOW URINE WITH GRAVITY. PT DENIES PAIN & ANXIETY. NO BOWEL MOVEMENT YET THIS SHIFT. REPORT FROM DAY SHIFT THAT PT RECEIVED ENEMA YESTERDAY AND HAD A BOWEL MOVEMENT AND HAD ONE TODAY WELL. PT CURRENTLY RESTING IN BED WITH TV ON. CALL LIGHT WITHIN REACH.
[2023-08-24 23:52] VITALS: BP 115/49
[2023-08-25 06:08] VITALS: BP 134/57
--- NOTE | 2023-08-25 06:31 | NUR ---
NO ACUTE CHANGES, SEE PREVIOUS NOTE.
[2023-08-25 07:16] VITALS: BP 120/59
[2023-08-25] MEDS ORDERED: LORA.5 PO (09:08)
[2023-08-25] MEDS ORDERED: MIRALAX17 GM PO (09:08)
[2023-08-25] MEDS ORDERED: DOCUZEN 8.6-501 EACH PO (09:10)
== END 2023-08-25 11:06 | disposition home or self-care (01) | DRG 291 ==
LOC: ER 08:20 → PCU 08:21
PROVIDERS: Emergency Medicine; ADMIT Internal Medicine
PROC: 0T9B70Z Drainage of Bladder with Drainage Device, Via Natural or Artificial Opening (ICD-10-PCS; principal; 2023-08-24)
DX: I11.0 Hypertensive heart disease with heart failure (principal); I50.23 Acute on chronic systolic (congestive) heart failure; J96.21 Acute and chronic respiratory failure with hypoxia; I25.10 Atherosclerotic heart disease of native coronary artery without angina pectoris; Z66 Do not resuscitate; E11.40 Type 2 diabetes mellitus with diabetic neuropathy, unspecified; M10.9 Gout, unspecified; F41.9 Anxiety disorder, unspecified; E03.9 Hypothyroidism, unspecified; Z51.5 Encounter for palliative care; Z96.612 Presence of left artificial shoulder joint; F17.210 Nicotine dependence, cigarettes, uncomplicated; F10.90 Alcohol use, unspecified, uncomplicated; K59.00 Constipation, unspecified; Z85.46 Personal history of malignant neoplasm of prostate; Z87.19 Personal history of other diseases of the digestive system; Z79.82 Long term (current) use of aspirin; Z79.02 Long term (current) use of antithrombotics/antiplatelets; Z79.891 Long term (current) use of opiate analgesic; Z79.899 Other long term (current) drug therapy; Z79.4 Long term (current) use of insulin; Z79.890 Hormone replacement therapy; I25.2 Old myocardial infarction; Z98.890 Other specified postprocedural states
CPT/HCPCS: 51702; 74019; 80048; 81003; 82947; 84484; 85025; 93005; 93010; 94640; 94660; 94664; 94762; 96374-59; 96375-59; 99285-25; A9270; G0378; J1815; J1940; J2060